=== PATIENT | male | born 1970 | race Caucasian/White ===

== ENCOUNTER → 2017-04-08 | Outpatient (CLI) | payer MEDICARE, OTHER ==
[~2017-04-08] MED LIST: ASPIRIN325 MG PO; CRESTOR40 MG PO; IMDUR ER TAB 3030 MG PO; LANTUS SOL100 UNIT/1 SQ; METOPROLOL SUCC50 MG PO; NEURONTIN 400400 MG PO; NITROSTAT 0.40.4 MG SL; NORCO 10-325 T1 EACH PO; NOVOLOG FL100 UNIT/1 SQ; PLAVIX 75 MG TA75 MG PO; VALIUM 5 MG TAB5 MG PO
== END ==
LOC: NM 04-06 09:40
DX: L98.499 Non-pressure chronic ulcer of skin of other sites with unspecified severity (principal); E10.59 Type 1 diabetes mellitus with other circulatory complications
CPT/HCPCS: 78315; A9503

== ENCOUNTER 2021-03-28 23:22 | Inpatient (IN) | payer MEDICARE, OTHER ==
[~2021-03-28] VITALS: Ht 195.6 cm; Wt 81.0 kg
[~2021-03-28 23:22] MED LIST changes: +ANDROGEL75 GM TD; +BACTRIM DS TAB1 EACH PO; +CATAPRES 0.1MG0.1 MG PO; +COREG 25MG TAB25 MG PO; +FISH OIL 1,0001 EACH PO; +HYDROCHLOROTHIA25 MG PO; +K-DUR TAB 10 M10 MEQ PO; +KEFLEX CAP 500500 MG PO; +PHENERGAN 25 MG25 M1 PO; +PRINIVIL20 MG PO; +SEROQUEL100 MG PO; +TRICOR145 MG PO; +ZANTAC150 MG PO; +ZOFRAN ODT 4 MG4 MG PO
[2021-03-28 23:55] LABS: HEMOGLOBIN 8.2 gm/dl (14.0-17.5); RED BLOOD COUNT 2.76 M/UL (4.20-5.50); WHITE BLOOD COUNT 12.7 K/UL (4.5-11.0)
[2021-03-29 00:11] LABS: BUN/CREATININE RATIO 14 (0-10)
[2021-03-29 06:00] LABS: HEMOGLOBIN 7.2 gm/dl (14.0-17.5); WHITE BLOOD COUNT 12.7 K/UL (4.5-11.0)
[2021-03-29 06:11] LABS: RED BLOOD COUNT 2.42 M/UL (4.20-5.50)
[2021-03-29 19:31] LABS: ACINETOBACTER BAUMANNII Not Detected (Negative); CANDIDA ALBICANS Not Detected (Negative); CANDIDA KRUSEI Not Detected (Negative); CANDIDA TROPICALIS Not Detected (Negative); ESCHERICHIA COLI Not Detected (Negative); HAEMOPHILUS INFLUENZAE Not Detected (Negative); KLEBSIELLA OXYTOCA Not Detected (Negative); KLEBSIELLA PNEUMONIAE Not Detected (Negative); KPC-CARBAPENEM-RESISTANCE GENE Not Detected (Negative); PROTEUS Not Detected (Negative); PSEUDOMONAS AERUGINOSA Not Detected (Negative); SERRATIA MARCESANS Not Detected (Negative); STAPHYLOCOCCUS Not Detected (Negative); STAPHYLOCOCCUS AUREUS Not Detected (Negative); STREP AGALACTIAE (GROUP B) Not Detected (Negative); STREP PYOGENES (GROUP A) Not Detected (Negative); STREPTOCOCCUS Not Detected (Negative); mecA (METHICILLIN RESIST GENE Not Detected (Negative); vanA/B (VANCOMYCIN RESIST GENE Not Detected (Negative)
--- NOTE | 2021-03-29 19:55 | NUR ---
POSITIVE BLOOD CULTURE CALLED FROM LAB REPORTED TO FERMÍN GUERRERO ON VANCOMYCIN CLARIFIED WITH PHARMACY SEE MAR
[2021-03-29 20:46] LABS: ENTEROCOCCUS DETECTED (Negative)
[2021-03-30 05:12] LABS: RED BLOOD COUNT 2.29 M/UL (4.20-5.50); WHITE BLOOD COUNT 10.7 K/UL (4.5-11.0)
[2021-03-30 05:23] LABS: HEMOGLOBIN 6.4 gm/dl (14.0-17.5)
--- NOTE | 2021-03-30 05:32 | NUR ---
[facility] CALLED TO DR KOVACS
[2021-03-30] MEDS ORDERED: NORVASC5 MG PO (05:33)
[2021-03-30] MEDS ORDERED: CRESTOR10 MG PO (05:33)
[2021-03-30] MEDS ORDERED: ZOFRAN 4 MG TAB4 MG PO (12:54)
[2021-03-30] MEDS ORDERED: FERROUS SULFAT325 M2 PO (13:10)
[2021-03-30] MEDS ORDERED: VASCEPA1 GM PO (13:10)
[2021-03-30] MEDS ORDERED: ASPIRIN EC81 MG PO (13:11)
[2021-03-30] MEDS ORDERED: ISOSORBIDE MONO30 MG PO (13:12)
[2021-03-30] MEDS ORDERED: FLOMAX 0.4 MG0.4 MG PO (13:13)
[2021-03-30] MEDS ORDERED: NEPHRO-VITE RX1 EACH PO (13:13)
[2021-03-30] MEDS ORDERED: PROCRIT3000 UNIT/ SC (13:15)
[2021-03-30] MEDS ORDERED: COREG12.5 MG PO (13:16)
[2021-03-30] MEDS ORDERED: AMIODARONE HCL200 MG PO (13:17)
[2021-03-30] MEDS ORDERED: ELIQUIS 5 MG TAB5 MG PO (13:17)
[2021-03-30] MEDS ORDERED: HUMALOG100 UNIT/1 SC (13:21)
[2021-03-30] MEDS ORDERED: HYDROCODON-ACE1 EAC6 PO (13:31)
[2021-03-30] MEDS ORDERED: LANTUS SOL100 UNIT/1 SQ (16:14)
[2021-03-31 05:35] LABS: HEMOGLOBIN 8.7 gm/dl (14.0-17.5); RED BLOOD COUNT 2.93 M/UL (4.20-5.50); WHITE BLOOD COUNT 9.7 K/UL (4.5-11.0)
--- NOTE | 2021-03-31 06:16 | NUR ---
K 2.9 REPORTED TO NATHANIEL KHOURY ORDERED 40MG K PO X1 DOSE
[2021-03-31 08:14] LABS: HBSAG SCREEN Negative (Negative); HEP A AB, IGM Negative (Negative); HEP B CORE AB, IGM Negative (Negative); HEP C VIRUS AB <0.1 (0.0-0.9)
[2021-04-01 04:32] LABS: HEMOGLOBIN 8.5 gm/dl (14.0-17.5); RED BLOOD COUNT 2.86 M/UL (4.20-5.50); WHITE BLOOD COUNT 8.2 K/UL (4.5-11.0)
--- NOTE | 2021-04-01 05:44 | NUR ---
04/01/21 0525 PT IS ON DIALYSIS, STATES I DONT ALWAYS PEE. DENIES HAVING ANY URGE TO VOID AT THIS TIME.
[2021-04-06 05:27] LABS: HEMOGLOBIN 8.8 gm/dl (14.0-17.5); RED BLOOD COUNT 2.92 M/UL (4.20-5.50); WHITE BLOOD COUNT 8.2 K/UL (4.5-11.0)
[2021-04-07 04:08] LABS: HEMOGLOBIN 9.4 gm/dl (14.0-17.5); RED BLOOD COUNT 3.15 M/UL (4.20-5.50); WHITE BLOOD COUNT 9.6 K/UL (4.5-11.0)
[2021-04-08 06:55] LABS: HEMOGLOBIN 8.8 gm/dl (14.0-17.5); RED BLOOD COUNT 2.93 M/UL (4.20-5.50); WHITE BLOOD COUNT 11.5 K/UL (4.5-11.0)
[2021-04-08] MEDS ORDERED: VANCOMYCIN HCL1 GM IV (09:39)
[2021-04-08] MEDS ORDERED: PROTONIX 40 MG40 M1 PO (10:00)
[2021-04-08] MEDS ORDERED: ZYVOX600 MG PO (11:34)
--- NOTE | 2021-04-08 15:21 | NUR ---
REPORT CALLED TO AMARILIS ROBERT AT THIS TIME
--- NOTE | 2021-04-08 15:32 | NUR ---
PT WAS CHANGED AND PUT UP IN CHAIR FOR TRANSPORT BUT WHEN SHE GOT UP HERE HE SAID HE HAD ANOTHER BM AND WE HAD TO PUT HIM BACK TO BED TO BE CHANGED AGAIN . , SO WE DID VERY LG BM , SOFT BROWN, BEFORE I COULD LEAVE ROOM HE ASKED TO GET THE BEDPAN , SO I PLACED IT UNDER HIM AND HE SAID HE WOULD CALL OUT , WHEN HE GETS DONE , FAMILY IS DOWN STAIRS WAITING FOR HIM AT [facility].
--- NOTE | 2021-04-08 16:41 | NUR ---
WE CLEANED STOOL OFF PT AGAIN AND BOTH ME AND TECH TOOK PT OUT TO CAR, SISTER LOADED HIM UP TO FRONT SEAT
== END 2021-04-08 16:32 | disposition home health service (06) | DRG 314 ==
LOC: ER1 23:22 → CDU 03-29 02:49 → CCU 03-29 02:49 → MED SURG 4 03-29 02:49 → CCU 03-29 05:40 → MED SURG 4 03-31 19:41
PROVIDERS: Emergency Medicine; Internal Medicine; Internal Medicine Nephrology; ADMIT Internal Medicine
PROC: 5A1D70Z Performance of Urinary Filtration, Intermittent, Less than 6 Hours Per Day (ICD-10-PCS; principal; 2021-03-29)
DX: T82.7XXA Infection and inflammatory reaction due to other cardiac and vascular devices, implants and grafts, initial encounter (principal); G93.41 Metabolic encephalopathy; N18.6 End stage renal disease; I12.0 Hypertensive chronic kidney disease with stage 5 chronic kidney disease or end stage renal disease; R78.81 Bacteremia; M86.8X7 Other osteomyelitis, ankle and foot; L97.428 Non-pressure chronic ulcer of left heel and midfoot with other specified severity; L97.418 Non-pressure chronic ulcer of right heel and midfoot with other specified severity; E87.2 Acidosis; E11.69 Type 2 diabetes mellitus with other specified complication; E87.5 Hyperkalemia; E11.22 Type 2 diabetes mellitus with diabetic chronic kidney disease; E87.6 Hypokalemia; I25.10 Atherosclerotic heart disease of native coronary artery without angina pectoris; E78.5 Hyperlipidemia, unspecified; F41.9 Anxiety disorder, unspecified; D64.9 Anemia, unspecified; I73.9 Peripheral vascular disease, unspecified; Z79.4 Long term (current) use of insulin; Z95.1 Presence of aortocoronary bypass graft; L89.152 Pressure ulcer of sacral region, stage 2
CPT/HCPCS: ECHO; 0240U; 36415; 36430; 36600; 70450; 71045; 73630; 80048; 80053; 80074; 80202; 80307; 82140; 82550; 82553; 82803; 82962; 83605; 83690; 83735; 83874; 83880; 84100; 84439; 84443; 84484; 85007; 85018; 85025; 85027; 85610; 85652; 85730; 86140; 86850; 86900; 86901; 86920; 87040; 87077; 87150; 87186; 90935; 90937; 90947; 93005; 93306; 94640; 94664; 96374; 96375; 97163; 97167; 99285; G0480; J0290; J2543; J3370; J7030; J7050; J7070; P9016

== ENCOUNTER 2021-04-25 11:53 | Emergency (ER) | payer MEDICARE, OTHER ==
[~2021-04-25 11:53] MED LIST changes: +AMIODARONE HCL200 MG PO; +ASPIRIN EC81 MG PO; +COREG12.5 MG PO; +CRESTOR10 MG PO; +ELIQUIS 5 MG TAB5 MG PO; +FERROUS SULFAT325 M2 PO; +FLOMAX 0.4 MG0.4 MG PO; +HUMALOG100 UNIT/1 SC; +HYDROCODON-ACE1 EAC6 PO; +ISOSORBIDE MONO30 MG PO; +NEPHRO-VITE RX1 EACH PO; +NORVASC5 MG PO; +PROCRIT3000 UNIT/ SC; +PROTONIX 40 MG40 M1 PO; +VANCOMYCIN HCL1 GM IV; +VASCEPA1 GM PO; +ZOFRAN 4 MG TAB4 MG PO; +ZYVOX600 MG PO
[2021-04-25 14:50] LABS: HEMOGLOBIN 7.4 gm/dl (14.0-17.5); RED BLOOD COUNT 2.49 M/UL (4.20-5.50); WHITE BLOOD COUNT 10.4 K/UL (4.5-11.0)
[2021-04-25] MEDS ORDERED: CEFUROXIME500 MG PO (20:04)
== END 2021-04-25 20:16 | disposition home or self-care (01) ==
LOC: ER1 11:53
PROVIDERS: Physician Assistant
DX: I12.0 Hypertensive chronic kidney disease with stage 5 chronic kidney disease or end stage renal disease (principal); N18.6 End stage renal disease; D64.9 Anemia, unspecified; N39.0 Urinary tract infection, site not specified; E11.22 Type 2 diabetes mellitus with diabetic chronic kidney disease; Z95.1 Presence of aortocoronary bypass graft; Z88.5 Allergy status to narcotic agent; Z99.2 Dependence on renal dialysis
CPT/HCPCS: 36415; 36430; 80053; 81001; 82270; 85025; 85610; 85730; 86850; 86900; 86901; 86920; 99283; J7050; P9016

== ENCOUNTER 2021-06-14 15:24 | Emergency (ER) | payer MEDICARE, OTHER ==
[~2021-06-14 15:24] MED LIST changes: +CEFUROXIME500 MG PO
[2021-06-14 16:09] LABS: HEMOGLOBIN 11.3 gm/dl (14.0-17.5); RED BLOOD COUNT 3.61 M/UL (4.20-5.50); WHITE BLOOD COUNT 11.1 K/UL (4.5-11.0)
[2021-06-14 16:34] LABS: BUN/CREATININE RATIO 8 (0-10)
[2021-06-14] MEDS ORDERED: ZITHROMAX250 MG PO (17:01)
[2021-06-14] MEDS ORDERED: OMNICEF 300 MG300 MG PO (17:01)
== END 2021-06-14 17:25 | disposition home or self-care (01) ==
LOC: ER1 15:24
PROVIDERS: Physician Assistant
DX: J18.9 Pneumonia, unspecified organism (principal); I25.10 Atherosclerotic heart disease of native coronary artery without angina pectoris; Z20.822 Contact with and (suspected) exposure to COVID-19; E78.5 Hyperlipidemia, unspecified; I10 Essential (primary) hypertension; Z87.891 Personal history of nicotine dependence
CPT/HCPCS: 36600; 71045; 80053; 82550; 82553; 82803; 83874; 84484; 85025; 93005; 94664; 99285; U0002

== ENCOUNTER 2021-06-18 21:20 | Emergency (ER) | payer MEDICARE, OTHER ==
[~2021-06-18 21:20] MED LIST changes: +OMNICEF 300 MG300 MG PO; +ZITHROMAX250 MG PO
== END 2021-06-18 21:23 | disposition expired ==
LOC: ER1 21:20
DX: I46.9 Cardiac arrest, cause unspecified (principal); N18.6 End stage renal disease; E11.22 Type 2 diabetes mellitus with diabetic chronic kidney disease; E11.621 Type 2 diabetes mellitus with foot ulcer; L97.429 Non-pressure chronic ulcer of left heel and midfoot with unspecified severity; L97.419 Non-pressure chronic ulcer of right heel and midfoot with unspecified severity; Z95.1 Presence of aortocoronary bypass graft; E78.5 Hyperlipidemia, unspecified; I48.91 Unspecified atrial fibrillation; E87.6 Hypokalemia
CPT/HCPCS: 99285; J0171; J7030